=== PATIENT | female | born 2000 | race Caucasian/White ===

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

== ENCOUNTER 2018-03-11 22:42 | Emergency (ER) | payer OTHER ==
[~2018-03-11] VITALS: Ht 149.9 cm; Wt 72.1 kg
[2018-03-11 23:01] VITALS: Ht 149.9 cm; Wt 72.1 kg
[2018-03-12 01:26] VITALS: BP 109/73
== END 2018-03-12 01:26 | disposition home or self-care (01) ==
LOC: ED 22:42
DX: J18.8 Other pneumonia, unspecified organism (principal); K59.00 Constipation, unspecified; J45.909 Unspecified asthma, uncomplicated
CPT/HCPCS: J0696; J2001

== ENCOUNTER 2019-11-17 04:40 | Emergency (ER) | payer OTHER ==
[~2019-11-17] VITALS: Ht 152.4 cm; Wt 76.2 kg
[2019-11-17 04:55] VITALS: Ht 152.4 cm; Wt 76.2 kg
[2019-11-17 06:50] LABS: microscopic required? NO
[2019-11-17 07:09] LABS: BASOPHIL % 0.4 % (0-2); PLATELET COUNT 240 x10^3mcL (130-400); RED CELL DISTRIBUTION WIDTH 12.6 % (11.5-14.5)
[2019-11-17 07:10] LABS: urine erythrocyte NEGATIVE (NEGATIVE)
[2019-11-17 07:33] LABS: CALCIUM 8.7 mg/dL (8.5-10.1); CARBON DIOXIDE 26.2 mmol/L (21-32); CHLORIDE SERUM 100 mmol/L (98-107); CREATININE SERUM 0.6 mg/dL (0.6-1.0); GFR1 > 60 mL/min; GLUCOSE SERUM 106 mg/dL (74-106); POTASSIUM SERUM 3.8 mmol/L (3.5-5.1); SODIUM SERUM 135 mmol/L (136-145)
[2019-11-17 07:36] LABS: ALBUMIN 3.8 g/dL (3.4-5.0); ALKALINE PHOSPHATASE 92 U/L (46-116); ALT/SGPT 166 U/L (14-59); AST/SGOT 60 U/L (15-37); BILIRUBIN TOTAL 0.33 mg/dL (0.20-1.00); LIPASE 96 IU/L (73-393); TOTAL PROTEIN, SERUM 7.8 g/dL (6.4-8.2)
[2019-11-17 09:10] VITALS: BP 128/75
== END 2019-11-17 09:10 | disposition home or self-care (01) ==
LOC: ED 04:40
PROVIDERS: Emergency Medicine
DX: K59.00 Constipation, unspecified (principal); J45.909 Unspecified asthma, uncomplicated; E66.9 Obesity, unspecified; Z68.32 Body mass index [BMI] 32.0-32.9, adult
CPT/HCPCS: 36415; Q0092